=== PATIENT | female | born 1940 | race Caucasian/White ===

== ENCOUNTER → 2016-09-20 | Outpatient (CLI) | payer OTHER, BC ==
[2016-09-20 07:46] LABS: HEMATOCRIT 41.7 % (37.0-47.0); HEMOGLOBIN 13.6 g/dL (12.0-16.0); MEAN CORPUSCULAR HEMOGLOBIN 29.2 PG (27-31); MEAN CORPUSCULAR HGB CONC 32.6 g/dL (33-37); MEAN CORPUSCULAR VOLUME 89.7 FL (81-99); MEAN PLATELET VOLUME 11.1 FL (7.4-12.2); RED BLOOD COUNT 4.65 10^6/uL (4.20-5.40)
[2016-09-20 07:54] LABS: BUN/CREATININE RATIO 28.75 (6-20); CALCIUM 9.2 mg/dL (8.7-10.7); CHOL/HDL RATIO 2.76 RATIO (0-4.0); LDL CHOLESTEROL,CALCULATED 64.2 mg/dL; SERUM ALBUMIN 3.9 g/dL (3.5-4.8)
--- NOTE | 2016-09-20 08:53 | DI ---
PA /LATERAL CHEST X-RAY, 09/20/2016 7:32 AM : Clinical History: CHF. Edema. Previous Exam: 04/14/2013. There is no acute soft tissue or bony abnormality. Heart size is normal. Lungs are clear. Mediastinal structures are normal. There are no pulmonary nodules. Reading: Normal chest x-ray. There has been no interval change.
== END ==
LOC: LAB 07:26
PROVIDERS: ATTEND Obstetrics & Gynecology Gynecology
DX: I50.9 Heart failure, unspecified (principal); R60.9 Edema, unspecified; E03.9 Hypothyroidism, unspecified; E78.00 Pure hypercholesterolemia, unspecified; R53.81 Other malaise; E87.6 Hypokalemia
CPT/HCPCS: 36415; 71020; 80053; 80061; 83880; 84443; 85027

== ENCOUNTER 2017-09-11 18:36 | Observation (INO) ==
[2017-09-11] MEDS ORDERED: NORMAL SALINE 10 ML SYRINGE FLUSH IVP PRN ×2 (18:53→21:49)
[2017-09-11] MEDS ORDERED: Sodium Chloride 0.9% 1,000 ML PRIMARY IV ONE (18:53)
--- NOTE | 2017-09-11 18:53 | PDOC ---
General Adult HPI - General Chief Complaint: General Medical Stated Complaint: DIZZINESS Date Seen by Provider: 09/11/17 Time Seen by Provider: 18:45 Source: POSITIVE: Patient Exam Limitations: POSITIVE: No limitations Nurse's Notes Reviewed & Considered: Yes - History of Present Illness Initial Comment: The patient is a 77-year-old female who presents the emergency department with the primary complaint of dizziness. She states that off and on over the past several months she's had some episodes of dizziness especially with movement. She states that today she had onset of the symptoms and they are worse than they have been previously. She states that when she gets up and tries to move around she is very unsteady and dizzy. She denies any associated headache, change in vision, change in speech, numbness or weakness in her extremities, chest pain or shortness of breath. She has had some chronic congestion related to allergies. She denies any fevers or chills, nausea or vomiting or any other associated complaints. Have you received a tetanus shot in the past 10 years?: Yes - Patient Home Medications Home Medications: Home Medications Folic Acid 4 mg PO DAILY 08/27/13 Amlodipine Besylate/Benazepril [Amlodipine-Benazepril 5-10 mg] 1 ea PO DAILY Triamterene/Hydrochlorothiazid [Dyazide 37.5-25 Capsule] 1 ea PO DAILY 08/28/13 Rosuvastatin Calcium [Crestor] 1 tab PO DAILY #90 tab 10/18/14 Celecoxib [Celebrex] 1 cap PO DAILY #90 cap 11/23/14 Cholecalciferol (Vitamin D3) [Vitamin D] 1 cap PO QD cap 02/16/15 Vitamin B Complex 1 ea PO QD tab 02/16/15 Levothyroxine Sodium 1 tab PO QD #90 tab 03/16/15 - Patient Allergies Allergies/Adverse Reactions: Allergies 3 Allergy/AdvReac Type Severity Reaction Status Date / Time No Known Allergies Allergy Verified 09/11/17 19:09 Past Medical History - heen HEENT History: Denies History Cardiovascular History: Hypertension, DVTs, Hyperlipidemia Additional Cardiovasular History: current dvt Respiratory History: Snoring Gastrointestinal History: Other (please comment) Additional Gastrointestinal History: Hx of Appendectomy and Cholecystectomy Genitourinary History: Denies History Endocrine History: Hypothyroidism Musculoskeletal History: Arthritis Neurological History: Denies History Blood Disorders: Clotting Disorders Psychiatric History: Denies History History of Sexually Transmitted Diseases: No Cancer History: Breast History of MDRO: No History of Other Communicable Diseases: No Alcohol Use: None In the Past 12 Months, Have Used or Abuse Any Substance: None Previous Surgical History: Yes Type / Date of Surgery: see above Anesthesia Reactions: No Malignant Hyperthermia: No Significant Family History: Heart disease Additional Family History: father Past Medical History Reviewed: Reviewed - No Changes ROS - Limitations ROS Limitations: No Limitations Constitution: DENIES: Chills, Fever Cardiovascular: DENIES: Chest Pain, Heart Palpitations, Edema Respiratory: REPORTS: Denies Resp Symptoms. DENIES: Shortness Of Breath Neurological: REPORTS: Dizziness. DENIES: Confusion, Headache, Numbness, Weakness Gastrointestinal: REPORTS: Denies GI Symptoms Musculoskeletal: REPORTS: Denies MS Symptoms Eyes: REPORTS: Denies Symptoms ENT: REPORTS: Denies Symptoms Skin: DENIES: Rash General Adult Exam - General Appearance General Appearance: POSITIVE: Alert, Cooperative, No Acute Distress - HEENT HEENT: POSITIVE: Head Inspection Nml, Eyes Inspection Nml, Ears Inspection Nml, Nose Inspection Nml, Pharynx Inspect. Nml, PERRL, EOMI - Neck Neck: POSITIVE: Normal Inspection. NEGATIVE: Lymphadenopathy - Respiratory Respiratory: POSITIVE: No Respiratory Distress, Breath Sounds Normal - Cardiovascular Cardiovascular: POSITIVE: Regular Rate & Rhythm, No Murmur Peripheral Pulses: Dorsalis-pedis (R): 2+, Dorsalis-pedis (L): 2+ - Abdomen Abdomen: Soft: (All Quadrants), Denies Tenderness: (All Quadrants), No Distention: (All Quadrants) - Skin Skin: POSITIVE: Normal Color, No Rash - Extremities Extremity: Normal ROM: (All Extremities), Normal Inspection: (All Extremities) - Neurological / Psychological Neurological: POSITIVE: Oriented X3, Motor Normal, Sensation Normal General Adult Progress - Results Reviewed by me Xrays/CTs/US Reviewed by me: Yes Discussed with Radiologist: Yes Radiology Findings: CT scan of the brain shows atrophy with no evidence of acute changes per radiologist. Lab Results Reviewed by Me: Yes CBC and BMP: 09/11/17 19:46 09/11/17 19:46 EKG Interpreted/Reviewed By Me:: Yes EKG Interpretation:: POSITIVE: Other (Sinus tachycardia with PACs at a rate of 104, no acute ST segment or T-wave changes) - Patient's Progress MDM / ED Course: An IV was established and she received 1 L bolus of normal saline as well as meclizine 25 mg by mouth. Her initial EKG showed sinus tachycardia with a rate of 104 with a few PACs and no evidence of acute ST segment depression or elevation. Her head CT was read as no acute intracranial findings with evidence of cerebral and cerebellar atrophy per radiologist. Her blood work is essentially unremarkable except for an elevated BUN/creatinine ratio and a potassium that is slightly low at 3.4. After administration of 1 L of fluids and meclizine she stated that her unsteadiness and dizziness seemed somewhat improved. We checked orthostatic vital signs and her pulse went up from the 80s laying down into the 120s 130s with standing and then abruptly dropped into the 60s. Her blood pressure remained stable throughout that period. She did not have any increasing symptoms. Upon laying back down her pulse came back to the 80s and was a sinus rhythm with PACs again. At this point it seems most likely that her vertigo type symptoms are likely related to inner ear disturbance as she does have some allergies or chronic sinus issues. She also appears to have some component of dehydration. Decision was made to admit the patient for further hydration and cardiac monitoring. These findings and recommendations were discussed with the patient and her family and they're in agreement with this plan. Dr. Spears has agreed to admit the patient as above. - Consult Counseled: POSITIVE: Patient, Family, RE: Lab Results, RE: Radiology Results, RE : DX Patient Care Time - Estimated PCT Patient Care Time (In Minutes): 45 Vital Signs - Recent Vital Signs Vital Signs: Vital Signs (Last 8 hours) Temp Pulse Pulse Pulse Pulse Resp BP 09/11/17 20:50 85 111 H 123 H 09/11/17 19:25 96.9 F 99 18 135/82 BP BP BP Pulse Ox 09/11/17 20:50 102/58 116/70 111/61 09/11/17 19:25 92 - VS Reviewed Vital Signs Reviewed: Yes Discharge Clinical Impression: Dehydration, Dizziness, Hypokalemia Discharge Disposition: Admit to Observation Condition: Stable Follow Up With: ZULEIMA WEBER [Primary Care Provider] -
[2017-09-11] MEDS ORDERED: MECLIZINE 25 MG CHEWABLE TABLET PO ONE (19:24)
--- NOTE | 2017-09-11 19:42 | DI ---
CT HEAD SCAN WITHOUT IV CONTRAST, 09/11/2017 6:53 PM : Clinical History: Dizziness. Previous Exam: None at this facility. Scans are obtained from the foramen magnum to the vertex without IV contrast. The fourth ventricle is of normal size, shape, position and contour. The third and lateral ventricles are mildly dilated but are otherwise normal for this patient's age. There is no evidence of an acute hemorrhagic or bland infarct. There is no cerebellopontine angle mass. There are bilateral lucent ar eas in the anterior and posterior limbs of the internal capsule but these are symmetric and felt to b e within normal limits or represent ischemic change rather than bilateral symmetric old lacunar infar cts. There are multiple punctate periventricular white matter lucencies bilaterally that extend into the watershed territory, consistent with small vessel ischemic disease. This amount of ischemic disea se is appropriate for the patient's age. There is severe cerebral atrophy and moderate cerebellar atr ophy. There are no extracerebral mantles or shift of the midline structures. Bone window evaluation i s normal. The paranasal sinuses are normal. READIN. There is no acute hemorrhagic or bland infarct. No cerebellopontine angle mass or abnormality of the petrous pyramids is noted. 2. Small vessel ischemic disease appropriate for the patient's age. 3. Moderate cerebellar and severe cerebral atrophy.
--- NOTE | 2017-09-11 19:48 | EKG ---
[address] [address] Measurements Intervals [place] Rate: 105 P: 53 MD: 168 QRS: -6 QRSD: 84 T: 39 QT: 341 QTc: 402 Interpretive Statements SINUS TACHYCARDIA WITH OCCASIONAL SUPRAVENTRICULAR PREMATURE COMPLEXES ABNORMAL RHYTHM ECG Compared to ECG 08/25/2013 18:25:05 Sinus rhythm no longer present Electronically Signed On 09-12-17 09:41:37 MDT by Waldemar Hoffman MD [email or web address]
[2017-09-11 19:49] LABS: BASOPHILS # (AUTO) 0.04 10*3/UL; BASOPHILS % (AUTO) 0.4 % (0-1); EOSINOPHILS % (AUTO) 1.9 % (0-8); LYMPHOCYTES # (AUTO) 3.05 10*3/uL; MEAN CORPUSCULAR HEMOGLOBIN 29.1 PG (27-31); MEAN CORPUSCULAR HGB CONC 33.3 g/dL (33-37); MEAN CORPUSCULAR VOLUME 87.4 FL (81-99); MEAN PLATELET VOLUME 11.1 FL (7.4-12.2); MONOCYTES # (AUTO) 1.09 10*3/UL (0.3-0.8); MONOCYTES % (AUTO) 10.1 % (5-15); NEUTROPHILS # (AUTO) 6.41 10*3/UL; NEUTROPHILS % (AUTO) 59.2 % (50-80); RED BLOOD COUNT 5.15 10^6/uL (4.20-5.40)
[2017-09-11 19:51] LABS: PLATELET MORPHOLOGY COMMENT NORMAL MORPHOLOGY (NORM); RBC MORPHOLOGY COMMENT NORMAL MORPHOLOGY (NORM); WBC MORPHOLOGY COMMENT NORMAL MORPHOLOGY (NORM)
[2017-09-11 20:00] LABS: BLOOD UREA NITROGEN 27 mg/dL (7-22); BUN/CREATININE RATIO 33.75 (6-20); SERUM ALBUMIN 4.4 g/dL (3.5-4.8)
[2017-09-11] MEDS ORDERED: LEVOTHYROXINE SODIUM PO SCH (21:49)
[2017-09-11] MEDS ORDERED: Magnesium Sulfate 2gm (Premix) 2 GM/50 ML BAG IV ONE (21:49)
[2017-09-11] MEDS ORDERED: ONDANSETRON 4 MG/2 ML VIAL IVP PRN (21:49)
[2017-09-11] MEDS ORDERED: LIDOCAINE W/ SODIUM BICARB 0.5 ML SYR SUBD PRN (21:49)
[2017-09-11] MEDS: HEPARIN 5000 UNIT/1 ML SUBCUT SCH (22:32)
[2017-09-12 05:10] VITALS: RESP 20
[2017-09-12] MEDS: HEPARIN 5000 UNIT/1 ML SUBCUT SCH (05:11)
[2017-09-12 05:16] LABS: BASOPHILS # (AUTO) 0.03 10*3/UL; BASOPHILS % (AUTO) 0.3 % (0-1); EOSINOPHILS # (AUTO) 0.27 10*3/UL; EOSINOPHILS % (AUTO) 2.8 % (0-8); Hematocrit [HCT] 39.2 % (37.0-47.0); Hemoglobin [HGB] 12.8 g/dL (12.0-16.0); LYMPHOCYTES # (AUTO) 3.69 10*3/uL; MEAN CORPUSCULAR HGB CONC 32.7 g/dL (33-37); MEAN CORPUSCULAR VOLUME 88.7 FL (81-99); MEAN PLATELET VOLUME 11.3 FL (7.4-12.2); MONOCYTES # (AUTO) 1.06 10*3/UL (0.3-0.8); NEUTROPHILS # (AUTO) 4.58 10*3/UL; NEUTROPHILS % (AUTO) 47.4 % (50-80); RED BLOOD COUNT 4.42 10^6/uL (4.20-5.40)
[2017-09-12 05:20] LABS: PLATELET MORPHOLOGY COMMENT NORMAL MORPHOLOGY (NORM); RBC MORPHOLOGY COMMENT NORMAL MORPHOLOGY (NORM); WBC MORPHOLOGY COMMENT NORMAL MORPHOLOGY (NORM)
[2017-09-12 05:27] LABS: BLOOD UREA NITROGEN 21 mg/dL (7-22); SERUM ALBUMIN 3.5 g/dL (3.5-4.8)
[2017-09-12] MEDS ORDERED: LEVOTHYROXINE 75 MCG TABLET PO ONE (06:00)
[2017-09-12] MEDS ORDERED: LEVOTHYROXINE SODIUM PO SCH (06:00)
[2017-09-12] MEDS ORDERED: LEVOTHYROXINE SODIUM 75 MCG PO SCH (06:00)
[2017-09-12] MEDS ORDERED: LEVOTHYROXINE 75 MCG TABLET PO SCH (07:15)
[2017-09-12 08:16] VITALS: BP 108/50; TEMP 98; O2SAT 93
[2017-09-12] MEDS ORDERED: CHOLECALCIFEROL 1000 IU TABLET PO SCH (09:00)
[2017-09-12] MEDS ORDERED: CELECOXIB 200 MG CAPSULE PO SCH (09:00)
--- NOTE | 2017-09-12 11:38 | EKG ---
[address] [place] [address] Measurements Intervals [place] Rate: 76 P: 64 IA: 180 QRS: -6 QRSD: 86 T: 23 QT: 386 QTc: 416 Interpretive Statements SINUS RHYTHM LOW QRS VOLTAGE IN PRECORDIAL LEADS [QRS DEFLECTION < 1.0 mV IN CHEST LEADS] POSSIBLE ANTERIOR MYOCARDIAL INFARCTION [30 ms Q WAVE IN V3/V4, OR R < 0.2 mV IN V4], PROBABLY OLD Compared to ECG 09/11/2017 19:05:32 Low QRS voltage now present Myocardial infarct finding now present Sinus tachycardia no longer present Electronically Signed On 09-15-17 08:27:48 MDT by Waldemar Hoffman MD [email or web address]
--- NOTE | 2017-09-12 11:59 | PDOC ---
HPI - History of Present Illness History of Present Illness: This very nice 77-year-old female who comes to the ER complaining of dizziness she had this off and on over the past 2 or 3 months especially with movement. She was up in the ER because her symptoms were worse. Patient was admitted to the hospital her electrolytes were replaced including magnesium and potassium and hydrated over 3 L with a change in the BUN she is walking around freely no further dizziness she feels great she hasn't felt this good in many months. Also repeat EKG showing this normal sinus rhythm no PVCs no tachycardia patient will like to be discharged home. Most likely from dehydration and electrolyte deficiencies. Nursing observe the patient using the restroom and walking around with no dizziness or any other discomfort or symptoms Final Discharge Diagnosis: Diagnostic Data, Laboratory Data, and Procedures of Signifigance: Current Visit Problems Problem Status Onset Code Dehydration Acute E86.0 Dizziness Acute R42 Hypokalemia Acute E87.6 Course of Hospitalization: See above On the date of discharge, the patient was examined: Vitals reviewed and are listed below Vital Signs (24 hrs) Temp Pulse Pulse Pulse Pulse Pulse Resp 09/12/17 11:00 72 09/12/17 08:16 98 F 95 20 09/12/17 07:00 87 95 09/12/17 05:00 97.4 F 71 20 09/12/17 03:00 80 09/12/17 01:00 97.8 F 76 18 09/11/17 23:00 90 09/11/17 22:01 97.3 F 75 20 09/11/17 21:53 75 20 09/11/17 20:50 85 111 H 123 H 09/11/17 19:25 96.9 F 99 18 BP BP BP BP Pulse Ox 09/12/17 11:00 09/12/17 08:16 108/50 93 09/12/17 07:00 09/12/17 05:00 124/60 95 09/12/17 03:00 09/12/17 01:00 100/57 95 09/11/17 23:00 09/11/17 22:01 116/55 96 09/11/17 21:53 09/11/17 20:50 102/58 116/70 111/61 09/11/17 19:25 135/82 92 Assessment and Plan: 1. As per discharge assessments above 2. Disposition: Home 3. Condition on discharge, stable and improved. 4. Diet: regular diet 5. Activities: resume normal activities 6. Follow-Up: 1. PCP follow-up with primary care physician as indicated 2. 7. Medications at the Time of Discharge: Home Medications 3 Medication Instructions Recorded Confirmed Type Folic Acid 4 mg PO DAILY 08/27/13 09/11/17 History Amlodipine Besylate/Benazepril 1 ea PO DAILY 08/28/13 09/11/17 History [Amlodipine-Benazepril 5-10 mg] Triamterene/Hydrochlorothiazid 1 ea PO DAILY 08/28/13 09/11/17 History [Dyazide 37.5-25 Capsule] Rosuvastatin Calcium [Crestor] 1 tab PO DAILY #90 tab 10/18/14 09/11/17 History Celecoxib [Celebrex] 1 cap PO DAILY #90 cap 11/23/14 09/11/17 History Cholecalciferol (Vitamin D3) 1 cap PO QD cap 02/16/15 09/11/17 History [Vitamin D] Vitamin B Complex 1 ea PO QD tab 02/16/15 09/11/17 History Levothyroxine Sodium 1 tab PO QD #90 tab 03/16/15 09/11/17 History 8. Time, care, counseling and coordination of care for this discharge is greater than 30 minutes. Past Medical History Medical History: Hypertension, hypercholesterolemia, dizziness Tobacco Use: Never Smoker In the Past 12 Months, Have Used or Abuse Any of the Following Substance: None Medication / Allergies Home Medications: Home Medications 3 Medication Instructions Recorded Confirmed Type Folic Acid 4 mg PO DAILY 08/27/13 09/11/17 History Amlodipine Besylate/Benazepril 1 ea PO DAILY 08/28/13 09/11/17 History [Amlodipine-Benazepril 5-10 mg] Triamterene/Hydrochlorothiazid 1 ea PO DAILY 08/28/13 09/11/17 History [Dyazide 37.5-25 Capsule] Rosuvastatin Calcium [Crestor] 1 tab PO DAILY #90 tab 10/18/14 09/11/17 History Celecoxib [Celebrex] 1 cap PO DAILY #90 cap 11/23/14 09/11/17 History Cholecalciferol (Vitamin D3) 1 cap PO QD cap 02/16/15 09/11/17 History [Vitamin D] Vitamin B Complex 1 ea PO QD tab 02/16/15 09/11/17 History Levothyroxine Sodium 1 tab PO QD #90 tab 03/16/15 09/11/17 History Allergies/Adverse Reactions: Allergies 3 Allergy/AdvReac Type Severity Reaction Status Date / Time No Known Allergies Allergy Verified 09/11/17 19:09 Review of Systems - Review of Systems All Systems: Reviewed & No Additional Complaints Except as Stated - Ear/Nose Exam Ear/Nose Exam: DENIES: Negative System Review, Decreased Hearing, Tinnitus, Otalgia, Sinus Pain, Rhinorrhea, Congestion, Anosmia, Epistaxis, Other, See HPI - Respiratory Respiratory: DENIES: Negative System Review, Cough, Sputum, Dyspnea At Rest, Dyspnea with Exertion, Pleuritic Pain, Hemoptysis, Wheezing, Other, See HPI - Cardiovascular Cardiovascular: DENIES: Chest Pain, Edema, Syncope, Palpitations - Gastrointestinal Gastrointestinal / Abdominal: DENIES: Negative System Review, Nausea, Vomiting, Diarrhea, Constipation, Abdominal Pain, Bloody Stool, Poor Appetite, Heartburn, Regurgitation, Bloating, Lactose Intolerance, Melena, Bright Red Blood per Rectum, Other, See HPI - Genitourinary Genitourinary: DENIES: Negative System Review, Pain, Burning, Hematuria, Incontinence, Urgency, Hesitant Stream, Decreased Stream, Nocutria, Discharge, Sexual Dysfunction, Other, See HPI - Neurological Neurologic: REPORTS: Dizziness Exam - Vitals Vital Signs: Vital Signs Temperature 98 F Temperature Source Temporal Artery Scan Pulse Rate [Pulse Oximeter] 95 Pulse Rate 72 Respiratory Rate 20 Blood Pressure [Left Arm] 108/50 Pulse Ox 93 Oxygen Delivery Method Room Air Height 5 ft 4 in Weight 184 lb 14.4 oz - General General Appearance: No Acute Distress, Cooperative - Head Head Exam: Normal Inspection, Normocephalic, Atraumatic - Neck Neck Exam: Normal Inspection, Full ROM, No Tenderness, No Lymphadenopathy, No Thyromegaly, JVP is not Raised - Respiratory Respiratory Exam: POSITIVE: Clear to Auscultation - Bilaterally, Breathing Non Labored, Normal To Percussion, Normal to Percussion and Palpation - Cardiovascular Cardiovascular Exam: POSITIVE: RRR, No Murmur, No Clicks, No Gallops, No Rubs, PMI Non-Displaced - GI/Abdominal GI/Abdominal Exam: POSITIVE: Normal Bowel Sounds, Non Tender, Non Distended, Soft, No Masses, No Hepatomegaly, No Splenomegaly, No Organomegaly - Extremities Extremities Exam: POSITIVE: Normal Inspection, Full ROM, Normal Capillary Refill , No Clubbing Present, No Edema Present, No Cyanosis Present, Negative Rufus's sign, Dosalis Pedis Pulses - Stong & Regular Results - Labs CBC and BMP: 09/12/17 04:12 09/12/17 04:12 Assessment and Plan - Patient Problems (1) Hypomagnesemia Current Visit: Yes Status: Acute Code(s): E83.42 - Hypomagnesemia (2) Dehydration Current Visit: Yes Status: Acute Code(s): E86.0 - Dehydration (3) Dizziness Current Visit: Yes Status: Acute Code(s): R42 - Dizziness and giddiness (4) Hypokalemia Current Visit: Yes Status: Acute Code(s): E87.6 - Hypokalemia
[2017-09-12] MEDS ORDERED: Rosuvastatin Tab 20 MG TAB PO SCH (21:00)
[2017-09-13] MEDS ORDERED: LEVOTHYROXINE 75 MCG TABLET PO SCH (05:30)
== END 2017-09-12 13:04 | disposition home or self-care (01) ==
LOC: MED/SURG 18:36 → ER 18:36 → MED/SURG 21:35
PROVIDERS: ADMIT Internal Medicine; ATTEND Internal Medicine

== ENCOUNTER 2018-12-29 18:51 | Inpatient (IN) ==
[2018-12-29] MEDS ORDERED: ASPIRIN 81 MG (BABY) CHEWABLE TABLET PO ONE (19:04)
[2018-12-29] MEDS ORDERED: Sodium Chloride 0.9% 1,000 ML PRIMARY IV ONE (19:04)
[2018-12-29] MEDS ORDERED: MORPHINE SULFATE 4 MG/1 ML IVP ONE (19:04)
--- NOTE | 2018-12-29 19:07 | EKG ---
[address] [place] [address] Measurements Intervals [place] Rate: 111 P: 27 MT: 163 QRS: -11 QRSD: 85 T: 18 QT: 320 QTc: 386 Interpretive Statements SINUS TACHYCARDIA WITH OCCASIONAL ECTOPIC PREMATURE COMPLEXES MODERATE VOLTAGE CRITERIA FOR LVH, CONSIDER NORMAL VARIANT [MEETS CRITERIA IN ONE OF: R(aVL), S(V1), R(V5), R(V5/V6)+S(V1)] POSSIBLE ANTERIOR MYOCARDIAL INFARCTION [30 ms Q WAVE IN V3/V4, OR R < 0.2 mV IN V4], PROBABLY OLD ABNORMAL RHYTHM ECG Compared to ECG 09/12/2017 11:40:29 Sinus rhythm no longer present Myocardial infarct finding still present Electronically Signed On 12-30-18 13:01:29 MDT by Waldemar Hoffman MD [email or web address]
[2018-12-29 19:13] LABS: BASOPHILS # (AUTO) 0.03 10*3/UL; BASOPHILS % (AUTO) 0.2 % (0-1); EOSINOPHILS # (AUTO) 0.02 10*3/UL; EOSINOPHILS % (AUTO) 0.1 % (0-8); Hemoglobin [HGB] 13.2 g/dL (12.0-16.0); LYMPHOCYTES # (AUTO) 1.44 10*3/uL; MEAN CORPUSCULAR HGB CONC 32.2 g/dL (33-37); MEAN CORPUSCULAR VOLUME 90.5 FL (81-99); MEAN PLATELET VOLUME 11.1 FL (7.4-12.2); MONOCYTES # (AUTO) 2.33 10*3/UL (0.3-0.8); NEUTROPHILS % (AUTO) 79.9 % (50-80); PLATELET MORPHOLOGY COMMENT NORMAL MORPHOLOGY (NORM); RBC MORPHOLOGY COMMENT NORMAL MORPHOLOGY (NORM); RED BLOOD COUNT 4.53 10^6/uL (4.20-5.40); WBC MORPHOLOGY COMMENT NORMAL MORPHOLOGY (NORM)
[2018-12-29 19:16] LABS: BLOOD UREA NITROGEN 17 mg/dL (7-22); BUN/CREATININE RATIO 28.33 (6-20); SERUM ALBUMIN 3.7 g/dL (3.5-4.8)
--- NOTE | 2018-12-29 19:35 | DI ---
AP CHEST X-RAY, 12/29/2018 7:04 PM : Clinical History: Chest pain. Previous Exam: 09/19/2006. Soft Tissues: No acute soft tissue abnormality. Bones: Normal. Heart: Heart Size: Normal. Vascular Pedicle Width: Normal. Azygous Vein: Normal size. Vascular Flow P attern:Normal. Pulmonary Arteries: More prominent than on the previous film. Lungs: There is a pleural-based density in the right costophrenic angle and this is highly suspicious for pulmonary embolism with infarction. Patchy densities are present in the right midlung field. Effusion(s): Probable small right pleural effusion. Mediastinum: Normal. Nodules: No pulmonary nodules. Reading: Pleural-based density in the right lower lobe, highly suspicious for pulmonary embolism with infarcti on. A CT angiogram of the chest is recommended. Small right pleural effusion.
--- NOTE | 2018-12-29 20:48 | DI ---
CT CTA Chest Non-Coronary [facility],12/29/2018 7:46 PM: Clinical History: Chest pain and elevated d-dimer. Previous Exam: 08/26/13 Findings: Multiple helically acquired CT images are obtained through the chest following the intravenous minist ration of 62 cc of Ultravist 370, and demonstrate multiple pulmonary emboli within the pulmonary jael jo ann bilaterally causing truncation. There is some subsegmental atelectasis in the lung bases. The aortic arch is unremarkable. The thyroid is normal. Multiple coronary artery calcifications are seen. Skeletal structures are unre markable. The upper abdomen is unremarkable. Impression: Multiple bilateral pulmonary emboli.
[2018-12-29] MEDS ORDERED: ENOXAPARIN SODIUM 80 MG/0.8 ML SYRINGE SUBCUT ONE (21:45)
--- NOTE | 2018-12-29 23:08 | PDOC ---
HPI - History of Present Illness Date of Service: 12/29/18 Time of Service: 22:45 Chief Complaint: Chest pain of 2 days' duration History of Present Illness: This is an 78 years old female with medical history significant for history of previous breast cancer status post radical mastectomy, history of hypothyroidism, hypertension and history of previous DVT who presented to the hospital with history of shortness of breath of about 2 days duration pain felt in the right side of the chest worse with movement and taking deep breath. She rated the pain maybe 5 out of 10. Investigation in the ER showed elevated d- dimer a CT of the chest showed bilateral PE she was given Lovenox and was admitted. The patient is a very poor historian, the history mainly obtained from notes. She refused the answer questions to assess her memory With no clear explanation. Past Medical History Medical History: 1. Hypertension. 2. Hypercholesterolemia. 3. Hypothyroidism. 4. History of previous DVT was on warfarin before Surgical History: 1. History of right modified radical mastectomy for breast cancer. 2. History of cholecystectomy. 3. History of appendectomy Family History: Reviewed an Not Pertinent Past Social History: Does not smoke, or drink. Her son lives with her. She said her 2004. On drugs. Tobacco Use: Never Smoker In the Past 12 Months, Have Used or Abuse Any of the Following Substance: None Medication / Allergies Home Medications: Home Medications Medication Instructions Recorded Confirmed Folic Acid 4 mg PO DAILY 08/27/13 12/29/18 Amlodipine Besylate/Benazepril 1 ea PO DAILY 08/28/13 12/29/18 [Amlodipine-Benazepril 5-10 mg] Rosuvastatin Calcium [Crestor] 1 tab PO DAILY #90 tab 10/18/14 12/29/18 Celecoxib [Celebrex] 1 cap PO DAILY #90 cap 11/23/14 12/29/18 Cholecalciferol (Vitamin D3) 1 cap PO QD cap 02/16/15 12/29/18 [Vitamin D] Vitamin B Complex 1 ea PO QD tab 02/16/15 12/29/18 Levothyroxine Sodium 1 tab PO QD #90 tab 03/16/15 12/29/18 Allergies/Adverse Reactions: Allergies Allergy/AdvReac Type Severity Reaction Status Date / Time No Known Allergies Allergy Verified 12/29/18 20:43 Review of Systems - Review of Systems All Systems: Reviewed & No Additional Complaints Except as Stated Exam - Vitals Vital Signs: Vital Signs Oxygen Flow Rate 2 Oxygen Delivery Method Nasal Cannula Height 5 ft 4 in Weight 171 lb 12.8 oz - General Additional General Exam Details: At times appear in pain though last few seconds. Seems related to position. - Head Head Exam: Normal Inspection - Eye Eye Exam: POSITIVE: Normal Appearance - ENT ENT Exam: POSITIVE: Normal Exam - Neck Neck Exam: Normal Inspection - Respiratory Additional Respiratory Exam Details: Decreased air entry crackles at the right base - Cardiovascular Cardiovascular Exam: POSITIVE: RRR - GI/Abdominal GI/Abdominal Exam: POSITIVE: Normal Bowel Sounds, Non Tender, Non Distended, Soft - Rectal Rectal Exam: POSITIVE: Deferred - External Exam: POSITIVE: Deferred - Extremities Extremities Exam: POSITIVE: Normal Inspection - Back Back Exam: POSITIVE: Normal Inspection - Neurological Additional Neurological Exam Details: Awake, follow commands. Refuses to answer questions to test her memory. - Psychiatric Psychiatric Exam: POSITIVE: Flat Affect - Integumentary Integumentary Exam: POSITIVE: Normal Color Results - Labs CBC and BMP: 12/30/18 05:05 12/29/18 19:00 - EKG Data -: EKG Interpreted by Me Rate: Tachycardia EKG Shows Normal: Sinus Rhythm - EKG Data EKG Interpretation: Other (EKG showed sinus tachycardia with occasional premature complex.) - Imaging Status: Report Reviewed by Me (CT chest Multiple bilateral pulmonary emboli. Chest X ray Pleural-based density in the right lower lobe, highly suspicious for pulmonary embolism with infarction. A CT angiogram of the chest is recommended. Small right pleural effusion.) Assessment and Plan - Patient Problems (1) Pulmonary embolism Current Visit: Yes Status: Acute Comment: She did say she was on warfarin before for DVT. She was very vague about who discontinued it and what medication she supposed to take. For the time being will put her on Lovenox. Will speak to her shoe planner tomorrow to see what medication she can afford and what medication her insurance would cover. sHe said she will not take the warfarin again. I think we will see what the insurance coverage and then will go from there. Will order an echocardiogram and ultrasound of her legs. Code(s): I26.99 - Other pulmonary embolism without acute cor pulmonale (2) Hypertension Current Visit: Yes Status: Acute Comment: There is history of hypertension reported in the notes and she has a probable amlodipine listed as one of her medication but she can not answer the question whether she has hypertension or not and whether she takes the medication or not she said she is not taking medication now but she couldn't tell me for what reason she suppose to take a medication for. Code(s): I10 - Essential (primary) hypertension (3) Leukocytosis Current Visit: Yes Status: Acute Comment: Maybe secondary some pulmonary infarction. I think will give her a dose of Rocephin. I'm not sure what her level of activity at home she claims that she is active. Although she did say that she fell, that was accidental according to her maybe 2 weeks ago. Code(s): D72.829 - Elevated white blood cell count, unspecified
[2018-12-29] MEDS ORDERED: CALCIUM CARBONATE 500 MG (TUMS) CHEWABLE TABLET PO PRN (23:17)
[2018-12-29] MEDS ORDERED: ACETAMINOPHEN 325 MG TABLET PO PRN (23:17)
[2018-12-29] MEDS ORDERED: ONDANSETRON 4 MG/2 ML VIAL IVP PRN (23:17)
[2018-12-29] MEDS ORDERED: DOCUSATE 100 MG CAPSULE PO PRN (23:17)
[2018-12-29] MEDS ORDERED: LIDOCAINE W/ SODIUM BICARB 0.5 ML SYR SUBD PRN (23:17)
[2018-12-29] MEDS ORDERED: MORPHINE SULFATE 2 MG/1 ML IVP PRN (23:37)
[2018-12-30] MEDS: cefTRIAXone Inj 2 GM in Sodium Chloride 0.9% 100 ML IV SCH ×2 (00:28→22:45)
--- NOTE | 2018-12-30 03:12 | PDOC ---
Chest Pain HPI - General Chief Complaint: Chest Pain Stated Complaint: CHEST PAIN Date Seen by Provider: 12/29/18 Time Seen by Provider: 18:55 Source: Patient, EMS Exam Limitations: POSITIVE: No limitations Treatment Prior to Arrival: REPORTS: Aspirin Nurse's Notes Reviewed & Considered: Yes EMS Report Reviewed & Considered: Verbal - History of Present Illness Initial Comments: The patient is an 78-year-old female who is brought to the emergency room by ambulance. She complains of bilateral chest pain, mainly below both of her breasts. She's had this pain for about 24 hours. She or family members called the ambulance, who administered 324 mg of baby aspirin in route. She states she is somewhat short of breath. No nausea vomiting or other GI or symptoms. No abdominal pain. No neurologic symptoms. She states that a few years ago she was treated with anticoagulation for a deep pain thrombosis to her lower extremities. Body Location Affected: REPORTS: Chest Timing: REPORTS: Abrupt, Constant Duration: <24 hours (Approximately 24 hours) Severity: Moderate Persistent/Worse since (date): 12/28/18 Persistent/Worse since (time): 19:00 Context: REPORTS: Rest Quality: REPORTS: "Pain" Radiation: REPORTS: None Associated Symptoms: REPORTS: Shortness of Breath. DENIES: Nausea, Vomiting, Diaphoresis, Hurts to Breathe, Palpitations, Productive Cough (blood), Productive Cough (sputum), Weakness, Dizziness Modifying Factors: improves with: None Reported Similar Symptoms Previously: No Recently seen/treated/hospitalized: No Any Prior Injuries Related to Current Complaint?: No - Patient Home Medications Home Medications: Home Medications Folic Acid 4 mg PO DAILY 08/27/13 Amlodipine Besylate/Benazepril [Amlodipine-Benazepril 5-10 mg] 1 ea PO DAILY 08/28/13 Rosuvastatin Calcium [Crestor] 1 tab PO DAILY #90 tab 10/18/14 Celecoxib [Celebrex] 1 cap PO DAILY #90 cap 11/23/14 Cholecalciferol (Vitamin D3) [Vitamin D] 1 cap PO QD cap 02/16/15 Vitamin B Complex 1 ea PO QD tab 02/16/15 Levothyroxine Sodium 1 tab PO QD #90 tab 03/16/15 - Patient Allergies Allergies/Adverse Reactions: Allergies Allergy/AdvReac Type Severity Reaction Status Date / Time No Known Allergies Allergy Verified 12/29/18 20:43 Past Medical History - heen HEENT History: Denies History Cardiovascular History: Hypertension, DVTs, Hyperlipidemia Additional Cardiovasular History: current dvt Respiratory History: Snoring Gastrointestinal History: Other (please comment) Additional Gastrointestinal History: Hx of Appendectomy and Cholecystectomy Genitourinary History: Denies History Endocrine History: Hypothyroidism Musculoskeletal History: Arthritis Prosthesis or Implant: No Neurological History: Denies History Blood Disorders: Clotting Disorders Psychiatric History: Denies History History of Sexually Transmitted Diseases: No Female Reproductive History: Breast Surgery (include type of surgery in additional comments), Other (please comment) Additional Female Reproductive History: RIGHT MASTECTOMY Obstetrical History: Denies History Cancer History: Breast In Past Year Been Physically Harmed or Verbally Threatened: No History of MDRO: No History of Other Communicable Diseases: No Tobacco Use: Never Smoker Alcohol Use: None In the Past 12 Months, Have Used or Abuse Any Substance: None Previous Surgical History: Yes Type / Date of Surgery: see above Anesthesia Reactions: No Malignant Hyperthermia: No Significant Family History: Heart disease Additional Family History: father Past Medical History Reviewed: Reviewed - No Changes ROS - Limitations ROS Limitations: No Limitations Constitution: REPORTS: Denies Symptoms Cardiovascular: REPORTS: Chest Pain Respiratory: REPORTS: Shortness Of Breath Neurological: REPORTS: Denies Neuro Symptoms Gastrointestinal: REPORTS: Denies GI Symptoms Endocrine: REPORTS: Denies Symptoms Musculoskeletal: REPORTS: Denies MS Symptoms Genitourinary: REPORTS: Denies Symptoms Eyes: REPORTS: Denies Symptoms ENT: REPORTS: Denies Symptoms Skin: REPORTS: Denies Skin Symptoms Lympathic: REPORTS: Denies Lympathic Symptoms Immunologic: POSITIVE: Denies Symptoms Psychiatric: POSITIVE: Denies Psych Symptoms Chest Pain PE - General Appearance General Appearance: REPORTS: Alert, Cooperative, No Acute Distress, No Evidence of Trauma - HEENT HEENT: POSITIVE: Head Inspection Nml, Eyes Inspection Nml, Ears Inspection Nml, Nose Inspection Nml, Oral/Dental Inspect. Nml, Pharynx Inspect. Nml, PERRL, EOMI - Neck Neck: REPORTS: Normal Inspection, No Carotid Bruit - Respiratory Respiratory: REPORTS: No Respiratory Distress, Breath Sounds Normal, Chest Non- Tender - Cardiovascular Cardiovascular: REPORTS: Regular Rate and Rhythm, Heart Sounds Normal, Equal Pulses, Strong Pulses, No Murmur, No Gallop, No Friction Rub, No JVD Peripheral Pulses: Radial (R): 2+, Radial (L): 2+ - Abdomen Abdomen: Soft: (All Quadrants), Normal Bowel Sounds: (All Quadrants), Denies Tenderness: (All Quadrants), No Splenomegaly: (All Quadrants), No Hepatomegaly: (All Quadrants), No Guarding: (All Quadrants), No Rebound: (All Quadrants), No Palpable Pulse: (All Quadrants), No Palpabale Mass: (All Quadrants), No Distention: (All Quadrants), No Rigidity: (All Quadrants) - Skin Skin: REPORTS: Intact, Normal For Race, Warm, Dry, No Rash - Extremities Extremity: Non-Tender: (All Extremities), Normal ROM: (All Extremities), Normal Inspection: (All Extremities) - Neurological / Psychological Neurological: POSITIVE: Affect Apporpriate, Oriented X3, cardiology physician assistant Normal As Tested, Motor Normal, Sensation Normal Images - Complete Complete: 1 - Area described chest pain Chest Pain Progress - Results Reviewed by me Xrays/CTs/US Reviewed by me: Yes Discussed with Radiologist: Yes Radiology Findings: Chest x-ray shows a pleural basilar density right lower quadrant compatible with pulmonary embolism or infarction. CTA of chest shows "central, segmental and some segmental pulmonary emboli bilaterally, right grea ter than left. Probable pulmonary infarct right middle and right lower lobe". Lab Results Reviewed by Me: Yes (d-dimer elevated; leukocytosis) CBC and BMP: 12/29/18 19:00 12/29/18 19:00 Lab Results:: Laboratory Results 12/29/18 12/29/18 12/29/18 19:00 19:00 19:00 WBC 19.39 H RBC 4.53 Hgb 13.2 Hct 41.0 MCV 90.5 MCH 29.1 MCHC 32.2 L RDW Std Deviation 49.2 RDW Coeff of Hasmukh 15.1 H Plt Count 187 MPV 11.1 Immature Gran % (Auto) 0.4 Neut % (Auto) 79.9 Lymph % (Auto) 7.4 L Pratt % (Auto) 12.0 Eos % (Auto) 0.1 Baso % (Auto) 0.2 Immature Gran # (Auto) 0.07 Neut # (Auto) 15.50 Lymph # (Auto) 1.44 Pratt # (Auto) 2.33 H Eos # (Auto) 0.02 Baso # (Auto) 0.03 WBC Morphology Comment Normal morphology Plt Morphology Comment Normal morphology RBC Morph Comment Normal morphology PT 15.1 H INR 1.31 D-Dimer 4377 H Sodium 138 Potassium 3.4 L Chloride 103 Carbon Dioxide 25 Anion Gap 10 BUN 17 Creatinine 0.6 BUN/Creatinine Ratio 28.33 H Glucose 139 H Calculated Osmolality 289.0 Calcium 8.6 L Total Bilirubin 1.0 AST 24 ALT 13 Alkaline Phosphatase 75 CK-MB (CK-2) Troponin I NT-Pro-B Natriuret Pep 352 Total Protein 7.4 Albumin 3.7 Globulin 3.8 Albumin/Globulin Ratio 0.90 L 12/29/18 12/29/18 19:00 19:00 WBC RBC Hgb Hct MCV MCH MCHC RDW Std Deviation RDW Coeff of Hasmukh Plt Count MPV Immature Gran % (Auto) Neut % (Auto) Lymph % (Auto) Pratt % (Auto) Eos % (Auto) Baso % (Auto) Immature Gran # (Auto) Neut # (Auto) Lymph # (Auto) Pratt # (Auto) Eos # (Auto) Baso # (Auto) WBC Morphology Comment Plt Morphology Comment RBC Morph Comment PT INR D-Dimer Sodium Potassium Chloride Carbon Dioxide Anion Gap BUN Creatinine BUN/Creatinine Ratio Glucose Calculated Osmolality Calcium Total Bilirubin AST ALT Alkaline Phosphatase CK-MB (CK-2) < 0.22 Troponin I < 0.012 NT-Pro-B Natriuret Pep Total Protein Albumin Globulin Albumin/Globulin Ratio EKG Interpreted/Reviewed By Me:: Yes (poor R-wave progression, unchanged from 09/13/2015) EKG Interpretation:: POSITIVE: Normal Sinus Rhythm, Normal Rate, Normal Intervals, Normal ST/T. NEGATIVE: Normal [place], Normal QRS (Poor R-wave prog ression in anterior leads) - Patient's Progress Pain Medication Addressed: POSITIVE: Patient Refused School/Work Release Addressed: POSITIVE: Not Applicable Re-Examine Time: 22:20 Re-Examine Comment: Patient and family advised of diagnosis of acute pulmonary embolism. Patient given Lovenox, 1 mg/kg subcutaneously in the emergency room. Case discussed with Dr. Dean, hospitalist, and patient is admitted for further evaluation and treatment. Status: POSITIVE: Unchanged, Re-Examined - Consult Consult (If Yes, Name of Consulting MD & Time Called): Yes (Dr. Dean, hospitalist, [id number]) Consulting MD will see pt:: POSITIVE: [facility] [place] Admit Counseled: POSITIVE: Patient, Family, RE: Lab Results, RE: Radiology Results, RE: DX, RE: Need for F/U Patient Care Time - Estimated PCT Patient Care Time (In Minutes): 50 Vital Signs - VS Reviewed Vital Signs Reviewed: Yes Discharge Clinical Impression: Pulmonary embolism Discharge Disposition: Admit to Inpatient Condition: Fair Patient Problem(s) Reviewed: Yes Date Decision to Admit to Inpatient: 12/29/18 Time Decision to Admit to Inpatient: 22:00
[2018-12-30] MEDS: HYDROcodone-APAP 5 MG -325 MG TABLET PO PRN ×3 (05:15→20:18)
[2018-12-30 05:23] LABS: BASOPHILS # (AUTO) 0.03 10*3/UL; BASOPHILS % (AUTO) 0.2 % (0-1); EOSINOPHILS # (AUTO) 0.06 10*3/UL; EOSINOPHILS % (AUTO) 0.4 % (0-8); Hematocrit [HCT] 37.8 % (37.0-47.0); Hemoglobin [HGB] 12.2 g/dL (12.0-16.0); LYMPHOCYTES # (AUTO) 1.91 10*3/uL; MEAN CORPUSCULAR HGB CONC 32.3 g/dL (33-37); MEAN CORPUSCULAR VOLUME 91.7 FL (81-99); MEAN PLATELET VOLUME 11.3 FL (7.4-12.2); MONOCYTES # (AUTO) 1.92 10*3/UL (0.3-0.8); NEUTROPHILS # (AUTO) 11.98 10*3/UL; NEUTROPHILS % (AUTO) 75.1 % (50-80); RED BLOOD COUNT 4.12 10^6/uL (4.20-5.40)
[2018-12-30 05:27] LABS: PLATELET MORPHOLOGY COMMENT NORMAL MORPHOLOGY (NORM); RBC MORPHOLOGY COMMENT NORMAL MORPHOLOGY (NORM); WBC MORPHOLOGY COMMENT NORMAL MORPHOLOGY (NORM)
[2018-12-30 06:30] LABS: HEMOGLOBIN A1C 5.45 % (4.2-6.0)
--- NOTE | 2018-12-30 09:49 | PDOC(PROG) ---
Date of Service: 12/30/18 Time of Service: 09:45 Interval History: Subjective Still continue to complain from pain in the chest pointing to the right side worse with the taking deep breath. Objective : Data - Labs CBC and BMP: 12/30/18 05:05 12/29/18 19:00 Objective : Exam - General General Appearance: No Acute Distress, Cooperative - Head Head Exam: Normal Inspection - Eye Eye Exam: Normal Appearance - ENT ENT Exam: Normal Exam - Neck Neck Exam: Normal Inspection - Respiratory Additional Respiratory Exam Details: Decreased air entry otherwise clear - Cardiovascular Cardiovascular Exam: RRR - GI/Abdominal GI/Abdominal Exam: Normal Bowel Sounds, Non Tender, Non Distended, Soft, No Organomegaly - Rectal Rectal Exam: Deferred - External Exam: Deferred - Extremities Extremities Exam: Normal Inspection - Back Back Exam: Normal Inspection - Neurological Additional Neurological Exam Details: She is awake refused to answer questions about day and month and year - Psychiatric Psychiatric Exam: Flat Affect Assessment and Plan - Patient Problems (1) Pulmonary embolism Current Visit: Yes Status: Acute Comment: Continue Lovenox. I did speak with the city planner about what medication her insurance would cover to see when we can switch her to medication by mouth Code(s): I26.99 - Other pulmonary embolism without acute cor pulmonale (2) Hypertension Current Visit: Yes Status: Acute Comment: Although there is a history of hypertension but I think she's not taking her medication. We'll watch her blood pressure. Code(s): I10 - Essential (primary) hypertension (3) Leukocytosis Current Visit: Yes Status: Acute Comment: Probably secondary to the pulmonary infarction. I think will continue IV antibiotics for now. Code(s): D72.829 - Elevated white blood cell count, unspecified
[2018-12-30] MEDS: ENOXAPARIN SODIUM 80 MG/0.8 ML SYRINGE SUBCUT SCH ×2 (09:53→22:45)
[2018-12-30] MEDS: Potassium Chloride Tab 10 MEQ TAB PO SCH ×2 (09:54→20:18)
--- NOTE | 2018-12-30 15:00 | DI ---
US Veins, UE/ABRAM Bilat,12/30/2018 7:00 AM: Clinical History: Pulmonary embolism. Previous Exam: August 25, 2013 Findings: Multiple grayscale and color Doppler sonographic images are obtained through the deep veins of both l ower trauma these, and demonstrate incomplete coaptation upon graded compression within the right com mon femoral vein and superficial femoral vein. There is some preserved flow. There is a 3.5 x 2.1 x 3.3 cm Altamirano's cyst within the right popliteal fossa. Within the left lower extremity there is an echogenic thrombus within the left common femoral vein an d superficial femoral vein and popliteal vein with incomplete coaptation. There is a 5.2 x 1.1 x 3.4 cm left Altamirano's cyst. Impression: Partially occlusive right lower extremity deep vein thrombosis most likely representing a chronic thr ombosis. Extensive deep venous thrombosis within the left lower extremity involving the common femoral vein th rough popliteal vein.
[2018-12-30] MEDS ORDERED: Warfarin 5 MG TAB PO SCH (21:00)
[2018-12-31] MEDS: HYDROcodone-APAP 5 MG -325 MG TABLET PO PRN ×2 (01:40→05:04)
[2018-12-31 05:21] LABS: Hematocrit [HCT] 36.9 % (37.0-47.0); Hemoglobin [HGB] 11.9 g/dL (12.0-16.0); MEAN CORPUSCULAR HGB CONC 32.2 g/dL (33-37); MEAN CORPUSCULAR VOLUME 91.8 FL (81-99); MEAN PLATELET VOLUME 11.4 FL (7.4-12.2); RED BLOOD COUNT 4.02 10^6/uL (4.20-5.40)
[2018-12-31 05:38] LABS: BLOOD UREA NITROGEN 12 mg/dL (7-22)
[2018-12-31 05:59] LABS: BAND NEUTROPHILS % 5 % (0-10); NEUTROPHILS % (MANUAL) 72 % (50-80)
[2018-12-31 06:00] LABS: BASOPHILS % (MANUAL) 0 % (0-1); EOSINOPHILS % (MANUAL) 2 % (0-8); METAMYELOCYTES % 0 %; MONOCYTES % (MANUAL) 3 % (0-12); MYELOCYTES % 0 %; PLATELET MORPHOLOGY COMMENT NORMAL MORPHOLOGY (NORM); PROMYELOCYTES % 0 %; RBC MORPHOLOGY COMMENT NORMAL MORPHOLOGY (NORM); WBC MORPHOLOGY COMMENT NORMAL MORPHOLOGY (NORM)
[2018-12-31] MEDS: Potassium Chloride Tab 10 MEQ TAB PO SCH ×2 (09:13→20:49)
[2018-12-31] MEDS: ENOXAPARIN SODIUM 80 MG/0.8 ML SYRINGE SUBCUT SCH (09:14)
--- NOTE | 2018-12-31 11:51 | OT.PROG ---
Progress Note Progress Note: S: pt stated that she was willing to complete assessment. O: tx consisted of MOCA evaluation. scoring as follows. Visuospatial/Executive: 1/5 Namin/3 Attention: 2/6 Language: 1/3 Abstraction: 1/2 Delayed recall: 0/5 Orientation: 6 total score: 8/30 A: pt scored in the severe cognitive impairment category. P: consult with hospitalist and family.
--- NOTE | 2018-12-31 12:53 | PDOC(PROG) ---
Date of Service: 12/31/18 Time of Service: 11:00 Interval History: Subjective Continued to have some pain in the chest she's pointing to the right side of the chest. Seem to be worse with cough and movement. Objective : Data - Labs CBC and BMP: 12/31/18 04:50 12/31/18 04:50 Objective : Exam - General General Appearance: No Acute Distress, Cooperative - Head Head Exam: Normal Inspection - Eye Eye Exam: Normal Appearance - ENT ENT Exam: Normal Exam - Neck Neck Exam: Normal Inspection - Respiratory Additional Respiratory Exam Details: Few crackles at the right lung base - Cardiovascular Cardiovascular Exam: RRR - GI/Abdominal GI/Abdominal Exam: Normal Bowel Sounds, Non Tender, Non Distended, Soft - Rectal Rectal Exam: Deferred - External Exam: Deferred - Extremities Extremities Exam: Normal Inspection - Back Back Exam: Normal Inspection - Psychiatric Psychiatric Exam: Flat Affect - Integumentary Integumentary Exam: Normal Color Assessment and Plan - Patient Problems (1) Pulmonary embolism Current Visit: Yes Status: Acute Comment: Yesterday I met with the sons and explained the condition to them, yesterday after discussion with Yue the production planner scheduler it appeared that her insurance would approve only warfarin so we kept her on the warfarin and Lovenox. Today I was informed by the production planner scheduler that Her insurance will cover for eliquis so I think we'll switch her tonight to the eliquis will DC war farin and Lovenox. I did order an echocardiogram as a collection technician will be here tomorrow. Code(s): I26.99 - Other pulmonary embolism without acute cor pulmonale (2) Hypertension Current Visit: Yes Status: Acute Comment: There is history of hypertension but blood pressure seems to be acceptable. Her son did bring her medications the only medication that she is is 75 MCG levothyroxin and I am not sure whether she is been it. Her TSH is normal. I think will put her on a lower dosage and need follow-up after that. Code(s): I10 - Essential (primary) hypertension (3) Leukocytosis Current Visit: Yes Status: Acute Comment: Maybe secondary to pulmonary infarction I did elect to treat her with antibiotics. I think will repeat her x-ray if the blood culture remain negative may consider stopping it. Will repeat her white count tomorrow. Code(s): D72.829 - Elevated white blood cell count, unspecified (4) DVT (deep venous thrombosis) Current Visit: Yes Status: Acute Comment: She is on treatment for it. Code(s): I82.409 - Acute embolism and thrombosis of unspecified deep veins of unspecified lower extremity (5) Cognitive impairment Current Visit: Yes Status: Acute Comment: One of the son mentioned to me that he did notice forgetfulness, the other son said he did not notice significant forgetfulness and he thinks that she different from before acutely. So we'll order a CT of her head. Will order B12. From my point I told him I suspect that she has an underlying dementia. Code(s): R41.89 - Other symptoms and signs involving cognitive functions and awareness
--- NOTE | 2018-12-31 16:33 | DI ---
CT Head WO Contrast,12/31/2018 9:24 AM: Clinical History: Confusion Previous Exam: 09/11/17 Findings: Multiple helically acquired CT images are obtained through the brain without contrast, and demonstrat e diffuse age-related volume loss. There is no mass, hemorrhage nor midline shift. The surrounding so ft tissue and osseous structures are unremarkable. Intraorbital structures and paranasal sinuses are unremarkable. The parapharyngeal fat is normal. Impression: No acute intracranial pathology.
[2018-12-31] MEDS: Apixaban 5 MG TABLET PO SCH (20:49)
[2018-12-31] MEDS: cefTRIAXone Inj 2 GM in Sodium Chloride 0.9% 100 ML IV SCH (23:05)
[2019-01-01] MEDS: LEVOTHYROXINE 25 MCG TABLET PO SCH (04:33)
[2019-01-01 05:10] LABS: BASOPHILS # (AUTO) 0.02 10*3/UL; BASOPHILS % (AUTO) 0.1 % (0-1); EOSINOPHILS # (AUTO) 0.07 10*3/UL; EOSINOPHILS % (AUTO) 0.5 % (0-8); Hemoglobin [HGB] 11.5 g/dL (12.0-16.0); LYMPHOCYTES # (AUTO) 1.51 10*3/uL; MEAN CORPUSCULAR HGB CONC 32.9 g/dL (33-37); MEAN CORPUSCULAR VOLUME 90.7 FL (81-99); MEAN PLATELET VOLUME 11.4 FL (7.4-12.2); MONOCYTES # (AUTO) 1.46 10*3/UL (0.3-0.8); MONOCYTES % (AUTO) 10.7 % (5-15); NEUTROPHILS # (AUTO) 10.53 10*3/UL; NEUTROPHILS % (AUTO) 77.3 % (50-80); RED BLOOD COUNT 3.86 10^6/uL (4.20-5.40)
[2019-01-01 05:24] LABS: BLOOD UREA NITROGEN 11 mg/dL (7-22); PLATELET MORPHOLOGY COMMENT NORMAL MORPHOLOGY (NORM); RBC MORPHOLOGY COMMENT NORMAL MORPHOLOGY (NORM); WBC MORPHOLOGY COMMENT NORMAL MORPHOLOGY (NORM)
[2019-01-01] MEDS: Potassium Chloride Tab 10 MEQ TAB PO SCH ×2 (08:46→20:37)
[2019-01-01] MEDS: Apixaban 5 MG TABLET PO SCH ×2 (08:46→20:38)
--- NOTE | 2019-01-01 10:50 | DI ---
PA /LATERAL CHEST, 01/01/2019 7:00 AM : Clinical History: Shortness of breath. Pulmonary embolism with infarction. Previous Exam: 12/29/2018. Soft Tissues: No acute soft tissue abnormality. Bones: Normal. Heart: Heart Size: Normal. Vascular Pedicle Width: Normal. Azygous Vein: Normal size. Vascular Flow P attern:Normal. Pulmonary Arteries: Pulmonary arterial hypertension present. Lungs: The right lower lobe infiltrate noted on the prior chest x-ray as well as on the recent CT ang iogram of the chest from 12/29/2018 has become more consolidated and resembles more of a "Lund hump ". No new areas of involvement are noted. Effusion(s): Right pleural effusion has increased slightly. Mediastinum: Normal. Nodules: No pulmonary nodules. Readin. Progressive consolidation of the right lower lobe pulmonary infarct. No new infarct pattern is no laila. 2. Slight increase in the right pleural effusion.
[2019-01-01] MEDS ORDERED: POTASSIUM CHLORIDE 20 MEQ TAB PO ONE (13:36)
--- NOTE | 2019-01-01 20:56 | PDOC(PROG) ---
Date of Service: 01/01/19 Time of Service: 20:51 Interval History: patient seen and evaluated earlier. discussed with son and grandson. less pain, cough present not as short of breath. no nausea or vomiting. Objective : Data - Labs CBC and BMP: 01/01/19 04:21 01/01/19 04:21 Objective : Exam - General General Appearance: No Acute Distress, Cooperative Additional General Exam Details: Vital Signs - Last Taken Temperature 98.7 F 01/01/19 16:41 Pulse Rate 97 01/01/19 16:41 Respiratory Rate 24 01/01/19 16:41 Blood Pressure 132/72 01/01/19 16:41 Pulse Ox 94 01/01/19 16:41 - Eye Eye Exam: No Scleral Icterus - ENT ENT Exam: Mucous Membranes Moist - Neck Neck Exam: JVP is not Raised - Respiratory Respiratory Exam: Breathing Non Labored, Decreased Breath Sounds (right side) - Cardiovascular Cardiovascular Exam: RRR, No Murmur, No Clicks, No Gallops, No Rubs, No JVD - GI/Abdominal GI/Abdominal Exam: Normal Bowel Sounds, Non Tender, Non Distended, Soft - Extremities Extremities Exam: No Clubbing Present, No Edema Present, No Cyanosis Present - Neurological Neurological Exam: Alert, Oriented x 3 (back to mental baseline per family.), No Facial Droop, Speech Intact / Clear, Moves All Extremities Equally Assessment and Plan - Patient Problems (1) Pneumonia Current Visit: Yes Status: Acute Code(s): J18.9 - Pneumonia, unspecified organism Qualifiers: Pneumonia type: due to unspecified organism Laterality: right Lung location: lower lobe of lung Qualified Code(s): J18.1 - Lobar pneumonia, unspecified organism (2) Pulmonary embolism Current Visit: Yes Status: Acute Code(s): I26.99 - Other pulmonary embolism without acute cor pulmonale Qualifiers: Pulmonary embolism type: other Chronicity: acute Acute cor pulmonale presence: without acute cor pulmonale Qualified Code(s): I26.99 - Other pulmonary embolism without acute cor pulmonale (3) Hypertension Current Visit: Yes Status: Acute Code(s): I10 - Essential (primary) hypertension Qualifiers: Hypertension type: essential hypertension Qualified Code(s): I10 - Essential (primary) hypertension (4) Leukocytosis Current Visit: Yes Status: Acute Code(s): D72.829 - Elevated white blood cell count, unspecified Qualifiers: Leukocytosis type: other Qualified Code(s): D72.828 - Other elevated white blood cell count (5) DVT (deep venous thrombosis) Current Visit: Yes Status: Acute Code(s): I82.409 - Acute embolism and thrombosis of unspecified deep veins of unspecified lower extremity Qualifiers: DVT location: lower extremity Affected thrombotic vein of extremity: femoral Chronicity: acute Laterality: left Qualified Code(s): I82.412 - Acute embolism and thrombosis of left femoral vein (6) Cognitive impairment Current Visit: Yes Status: Acute Code(s): R41.89 - Other symptoms and signs involving cognitive functions and awareness - Assessment / Plan Additional Assessment/Plan Details: continue rocephin, day #4 today eliquis for PE/DVT may need lifetime anticoagulation order PT and OT told family to consider potential cancer screening out of hospital, but not sure patient a good candidate for chemo or cancer therapy based on age, co- morbidities. needs treatment for PE first initially and screening can be done as outpatient. family agreed with this as a plan.
[2019-01-02] MEDS: cefTRIAXone Inj 2 GM in Sodium Chloride 0.9% 100 ML IV SCH ×2 (00:13→22:54)
[2019-01-02 04:45] LABS: BASOPHILS # (AUTO) 0.03 10*3/UL; BASOPHILS % (AUTO) 0.2 % (0-1); EOSINOPHILS # (AUTO) 0.15 10*3/UL; EOSINOPHILS % (AUTO) 1.1 % (0-8); Hematocrit [HCT] 39.5 % (37.0-47.0); Hemoglobin [HGB] 12.5 g/dL (12.0-16.0); LYMPHOCYTES # (AUTO) 2.93 10*3/uL; MEAN CORPUSCULAR HGB CONC 31.6 g/dL (33-37); MEAN CORPUSCULAR VOLUME 91.4 FL (81-99); MEAN PLATELET VOLUME 10.9 FL (7.4-12.2); MONOCYTES # (AUTO) 1.39 10*3/UL (0.3-0.8); MONOCYTES % (AUTO) 10.1 % (5-15); NEUTROPHILS # (AUTO) 9.28 10*3/UL; NEUTROPHILS % (AUTO) 67.2 % (50-80); RED BLOOD COUNT 4.32 10^6/uL (4.20-5.40)
[2019-01-02] MEDS: LEVOTHYROXINE 25 MCG TABLET PO SCH (04:48)
[2019-01-02 04:50] LABS: PLATELET MORPHOLOGY COMMENT NORMAL MORPHOLOGY (NORM); RBC MORPHOLOGY COMMENT NORMAL MORPHOLOGY (NORM); WBC MORPHOLOGY COMMENT NORMAL MORPHOLOGY (NORM)
[2019-01-02 04:53] LABS: BLOOD UREA NITROGEN 14 mg/dL (7-22); BUN/CREATININE RATIO 23.33 (6-20)
[2019-01-02] MEDS: VITAMIN B COMPLEX PO SCH (08:42)
[2019-01-02] MEDS: Apixaban 5 MG TABLET PO SCH ×2 (08:43→20:31)
[2019-01-02] MEDS: Potassium Chloride Tab 10 MEQ TAB PO SCH ×2 (08:44→20:31)
[2019-01-02] MEDS: FOLIC ACID 1 MG TABLET PO SCH (08:44)
[2019-01-02] MEDS: CHOLECALCIFEROL 1000 IU TABLET PO SCH (08:44)
--- NOTE | 2019-01-02 12:07 | PDOC(PROG) ---
Date of Service: 01/02/19 Time of Service: 12:03 Interval History: Feeling better. Still having pain with deep breaths. Weak and deconditioned, I spoke with therapy and the patient could not do very much activity without feeling short of breath. No chest pain, no nausea, no vomiting Objective : Data - Labs CBC and BMP: 01/02/19 04:19 01/02/19 04:19 Objective : Exam - General General Appearance: No Acute Distress, Cooperative Additional General Exam Details: Vital Signs - Last Taken Temperature 97.5 F 01/02/19 07:29 Pulse Rate 79 01/02/19 07:29 Respiratory Rate 20 01/02/19 07:29 Blood Pressure 140/66 01/02/19 07:29 Pulse Ox 94 01/02/19 07:29 - Eye Eye Exam: No Scleral Icterus - ENT ENT Exam: Mucous Membranes Moist - Neck Neck Exam: JVP is not Raised - Respiratory Respiratory Exam: Breathing Non Labored, Decreased Breath Sounds (Absent breath sounds lower right base.), Crackles, Coarse Breath Sounds - Cardiovascular Cardiovascular Exam: RRR, No Murmur, No Clicks, No Gallops, No Rubs, No JVD - GI/Abdominal GI/Abdominal Exam: Normal Bowel Sounds, Non Tender, Non Distended, Soft - Extremities Extremities Exam: No Clubbing Present, No Edema Present, No Cyanosis Present - Neurological Neurological Exam: Alert, No Facial Droop, Speech Intact / Clear, Moves All Ext remities Equally Assessment and Plan - Patient Problems (1) Pneumonia Current Visit: Yes Status: Acute Code(s): J18.9 - Pneumonia, unspecified organism Qualifiers: Pneumonia type: due to unspecified organism Laterality: right Lung location: lower lobe of lung Qualified Code(s): J18.1 - Lobar pneumonia, unspecified organism (2) Pleural effusion Current Visit: Yes Status: Acute Code(s): J90 - Pleural effusion, not elsewhere classified (3) Pulmonary embolism Current Visit: Yes Status: Acute Code(s): I26.99 - Other pulmonary embolism without acute cor pulmonale Qualifiers: Pulmonary embolism type: other Chronicity: acute Acute cor pulmonale presence: without acute cor pulmonale Qualified Code(s): I26.99 - Other pulmonary embolism without acute cor pulmonale (4) Hypertension Current Visit: Yes Status: Acute Code(s): I10 - Essential (primary) hype rtension Qualifiers: Hypertension type: essential hypertension Qualified Code(s): I10 - Essential (primary) hypertension (5) Leukocytosis Current Visit: Yes Status: Acute Code(s): D72.829 - Elevated white blood cell count, unspecified Qualifiers: Leukocytosis type: other Qualified Code(s): D72.828 - Other elevated white blood cell count (6) DVT (deep venous thrombosis) Current Visit: Yes Status: Acute Code(s): I82.409 - Acute embolism and thrombosis of unspecified deep veins of unspecified lower extremity Qualifiers: DVT location: lower extremity Affected thrombotic vein of extremity: femoral Chronicity: acute Laterality: left Qualified Code(s): I82.412 - Acute embolism and thrombosis of left femoral vein (7) Cognitive impairment Current Visit: Yes Status: Acute Code(s): R41.89 - Other symptoms and signs involving cognitive functions and awareness (8) Generalized weakness Current Visit: Yes Status: Acute Code(s): R53.1 - Weakness - Assessment / Plan Additional Assessment/Plan Details: Continue antibiotics, day #5 today. Had low-grade temperature last night. We'll continue Rocephin. write for Incentive spirometry. Continue PT and OT Continue breathing treatments. I think the patient would benefit greatly from a swing bed. On my exam today had the patient set up to auscultate her lungs, and a return checker nearly 30 seconds to sit up in the bed for a very poor get up and go result I'm going to check a chest x-ray tomorrow to recheck this effusion. If it somewhat persistent, may consider doing a thoracentesis although my thoughts are this is probably more likely related to pulmonary embolism than infection.
[2019-01-03] MEDS: LEVOTHYROXINE 25 MCG TABLET PO SCH (06:11)
[2019-01-03] MEDS: CHOLECALCIFEROL 1000 IU TABLET PO SCH (08:40)
[2019-01-03] MEDS: FOLIC ACID 1 MG TABLET PO SCH (08:40)
[2019-01-03] MEDS: Potassium Chloride Tab 10 MEQ TAB PO SCH ×2 (08:41→20:11)
[2019-01-03] MEDS: Apixaban 5 MG TABLET PO SCH (08:41)
--- NOTE | 2019-01-03 09:06 | DI ---
EXAM: XR Chest, 2 Views CLINICAL HISTORY: pneumonia and pleural effusion TECHNIQUE: Frontal and lateral views of the chest. COMPARISON: January 01, 2019. FINDINGS: Overall, little interval change in previously noted infarct/infiltrate in the right mid to lower lung and right pleural effusion. Cardiac silhouette and pulmonary vascularity are within normal limits. Left lung is unremarkable. IMPRESSION: Overall, little interval change in previously noted infarct/infiltrate in the right mid to lower lung and right pleural effusion.
[2019-01-03] MEDS: VITAMIN B COMPLEX PO SCH (10:22)
--- NOTE | 2019-01-03 12:10 | PDOC(PROG) ---
Date of Service: 01/03/19 Time of Service: 12:04 Interval History: No chest pain, still has cough. Was much better with physical therapy/occupational therapy today. Son and granddaughter at bedside. We discu ssed pleural effusion, risks and benefits of thoracentesis, and they agreed to proceed as well as the patient. No nausea or vomiting. Somewhat poor appetite. Objective : Data - Labs CBC and BMP: 01/02/19 04:19 01/02/19 04:19 - Imaging X-Ray Status: Image Reviewed by Me (Chest x-ray shows what looks to me like more consolidation in the right lower base. I suspect there is an underlying effusion) Objective : Exam - General General Appearance: No Acute Distress, Cooperative Additional General Exam Details: Vital Signs - Last Taken Temperature 97 F 01/03/19 11:18 Pulse Rate 102 H 01/03/19 11:18 Respiratory Rate 21 01/03/19 11:18 Blood Pressure 124/78 01/03/19 11:18 Pulse Ox 92 01/03/19 11:18 - Eye Eye Exam: No Scleral Icterus - ENT ENT Exam: Mucous Membranes Moist - Neck Neck Exam: JVP is not Raised - Respiratory Respiratory Exam: Breathing Non Labored, Decreased Breath Sounds (In right base), Crackles - Cardiovascular Cardiovascular Exam: RRR, No Murmur, No Clicks, No Gallops, No Rubs, No JVD - GI/Abdominal GI/Abdominal Exam: Normal Bowel Sounds, Non Tender, Non Distended, Soft - Extremities Extremities Exam: No Clubbing Present, No Edema Present, No Cyanosis Present - Neurological Neurological Exam: Alert, No Facial Droop, Speech Intact / Clear, Moves All Extremities Equally Assessment and Plan - Patient Problems (1) Pneumonia Current Visit: Yes Status: Acute Code(s): J18.9 - Pneumonia, unspecified organism Qualifiers: Pneumonia type: due to unspecified organism Laterality: right Lung location: lower lobe of lung Qualified Code(s): J18.1 - Lobar pneumonia, unspecified organism (2) Pleural effusion Current Visit: Yes Status: Acute Code(s): J90 - Pleural effusion, not elsewhere classified (3) Pulmonary embolism Current Visit: Yes Status: Acute Code(s): I26.99 - Other pulmonary embolism without acute cor pulmonale Qualifiers: Pulmonary embolism type: other Chronicity: acute Acute cor pulmonale presence: without acute cor pulmonale Qualified Code(s): I26.99 - Other pulmonary embolism without acute cor pulmonale (4) Hypertension Current Visit: Yes Status: Acute Code(s): I10 - Essential (primary) hypertension Qualifiers: Hypertension type: essential hypertension Qualified Code(s): I10 - Essential (primary) hypertension (5) Leukocytosis Current Visit: Yes Status: Acute Code(s): D72.829 - Elevated white blood cell count, unspecified Qualifiers: Leukocytosis type: other Qualified Code(s): D72.828 - Other elevated white blood cell count (6) DVT (deep venous thrombosis) Current Visit: Yes Status: Acute Code(s): I82.409 - Acute embolism and thrombosis of unspecified deep veins of unspecified lower extremity Qualifiers: DVT location: lower extremity Affected thrombotic vein of extremity: femoral Chronicity: acute Laterality: left Qualified Code(s): I82.412 - Acute embolism and thrombosis of left femoral vein (7) Cognitive impairment Current Visit: Yes Status: Acute Code(s): R41.89 - Other symptoms and signs involving cognitive functions and awareness (8) Generalized weakness Current Visit: Yes Status: Acute Code(s): R53.1 - Weakness - Assessment / Plan Additional Assessment/Plan Details: At this point, I think the pleural effusion needs to be sample to make sure there is no bacteria in it. I cannot differentiate between a parapneumonic effusion and an effusion from pulmonary embolism. I discussed this with the family at length. We will proceed with thoracentesis tomorrow. Hold Eliquis Labs in a.m. Given that the patient is on blood thinner, although I will have it held for over 24 hours prior to procedure, I think it may be best for radiology to do this procedure to minimize any bleeding risks with small catheters. If the Gram stain is negative, can discharge tomorrow, if positive then we need to see how much of the fluid we can drain. I also did discuss the possibility that this is all consolidation and there may not be any fluid on ultrasound to the family is aware that as a possibility. Continue PT and OT Anticoagulation for life Outpatient consideration for cancer screening with primary physician
[2019-01-03] MEDS: cefTRIAXone Inj 2 GM in Sodium Chloride 0.9% 100 ML IV SCH (23:19)
[2019-01-04 04:55] LABS: BASOPHILS # (AUTO) 0.07 10*3/UL; BASOPHILS % (AUTO) 0.7 % (0-1); EOSINOPHILS # (AUTO) 0.22 10*3/UL; EOSINOPHILS % (AUTO) 2.2 % (0-8); Hematocrit [HCT] 38.2 % (37.0-47.0); Hemoglobin [HGB] 12.4 g/dL (12.0-16.0); LYMPHOCYTES # (AUTO) 2.11 10*3/uL; MEAN CORPUSCULAR HGB CONC 32.5 g/dL (33-37); MEAN CORPUSCULAR VOLUME 90.7 FL (81-99); MEAN PLATELET VOLUME 10.6 FL (7.4-12.2); MONOCYTES % (AUTO) 13.2 % (5-15); NEUTROPHILS % (AUTO) 61.1 % (50-80); RED BLOOD COUNT 4.21 10^6/uL (4.20-5.40)
[2019-01-04 04:57] LABS: PLATELET MORPHOLOGY COMMENT NORMAL MORPHOLOGY (NORM); RBC MORPHOLOGY COMMENT NORMAL MORPHOLOGY (NORM); WBC MORPHOLOGY COMMENT NORMAL MORPHOLOGY (NORM)
[2019-01-04] MEDS: LEVOTHYROXINE 25 MCG TABLET PO SCH (05:06)
[2019-01-04] MEDS: Potassium Chloride Tab 10 MEQ TAB PO SCH (08:09)
[2019-01-04] MEDS: CHOLECALCIFEROL 1000 IU TABLET PO SCH (08:09)
[2019-01-04] MEDS: FOLIC ACID 1 MG TABLET PO SCH (08:10)
[2019-01-04] MEDS: VITAMIN B COMPLEX PO SCH (08:14)
--- NOTE | 2019-01-04 12:02 | OTI REPORT ---
Thank you for the referral of Hedy Franco. She was seen on 01/02/19 for an occupational therapy inpatient evaluation secondary to weakness. SUBJECTIVE: The patient is an 78-year-old female who is being seen secondary to having bilateral pulmonary embolisms, shortness of breath for the last two days, and hypertension. She has a previous history of breast cancer and having a unilateral mastectomy. She previously had some DVTs. The patient reports she does not do much during the day. She states she lives at home with her son but her son works night shifts and she basically sits in her chair for most of the day. She states she has stopped going to the grocery store and getting around town as she states she gets way too fatigued to do these things. The patient hasn't had an appetite; she reports she has not been able to eat very much. She states she feels a lot weaker. She states she would like to become more active and be able to clean her house and go shopping. Her mobile home does have 7 stairs with a handrail to get inside. She typically does not walk with a walker around her home. She states she fell a little while ago; she does not know the exact date, but she states her dogs had gotten behind her and she fell down. The patient states she typically dresses herself. She states that she struggles getting over the step in her shower, she cannot bend over, and she fatigues very easily in the shower. PAST MEDICAL HISTORY: Past medical history can be found in the patient's medical record. OBJECTIVE FINDINGS: General observations: The patient thought it was February of 1941. She reported that when the doctor came in the other day, she was very mad at him for trying to get her to answer these questions and she refused to answer the questions and she felt really bad about it. Bed mobility: The patient was able to come from supine to sit with increased time and min assist. Range of motion: While sitting edge of bed the patient demonstrated active range of motion from 0 to 120 degrees in bilateral shoulders; however, she stated this was very painful. Elbow active range of motion is within functional limits. Wrist and finger range of motion is within functional limits. All joints look arthritic when moving and she has hesitation with motion. Strength: The patient demonstrated upper extremity strength of 3/5 bilaterally. Endurance: The patient fatigues very easily. Transfers: The patient requires contact guard assist and increased time to transfer from sit to stand. Activities of daily living: The patient was able to sit edge of bed and don and doff her socks with increased time. The patient was able to complete a functional toilet transfer with a high rise toilet seat and contact guard assist. The patient needed min assist for toilet hygiene as she was not able to wipe herself completely after a bowel movement. Ambulation: The patient was able to ambulate approximately 40 feet but became very fatigued and stated that she needed to sit down. She needed a five minute rest break between the toilet transfer and the ambulation as she reported she was very fatigued. ASSESSMENT: The patient would benefit from further assessment of her cognitive status with cognitive testing if she is willing to participate. The patient fatigues very easily and her safety at home is questionable. She definitely needs to work on improving her strength and endurance before returning home. The patient may need to go swingbed as she will need increased time in order to improve her safety and overall abilities for home. Problem List: Decreased endurance Decreased cognitive orientation Decreased ability to perform ADLs Generalized weakness Short-Term Goals: To be met by discharge from inpatient: Patient will be alert and oriented x3. Patient will participate in a MoCA or a Cognitive Performance Test. Patient will increase overall strength to a 4+/5 bilaterally. Patient will be able to complete a toilet transfer safely and independently. Patient will be able to complete functional standing activity x10 minutes without fatigue. Long-Term Goals: To be met following discharge from inpatient: Patient will return home, demonstrating independence and safety with all functional transfers and ADLs. TREATMENT PLAN: Patient will be seen B.I.D during the week and one time per day over the weekend as an inpatient to address the above goals and objectives. INITIAL TREATMENT: Treatment today consisted of the initial evaluation followed by lower extremity dressing tasks at edge of bed. The patient functionally transferred to the bathroom with a wheeled walker. The patient required contact guard assist and min assist for toilet hygiene. The patient then ambulated x40 feet with wheeled walker. The patient became very fatigued and requested a rest break several times. The patient was issued a bath sponge as she does have difficulty showering self below the knees. The patient was issued a shower chair with a back to improve her energy conservation and ability to shower self and improve her safety in the shower. PETER
[2019-01-04] MEDS ORDERED: BUPivacaine Inj 0.25% PF - 10ml vial ONE (12:52)
[2019-01-04 14:53] VITALS: BP 116/75; RESP 20; TEMP 98.2; O2SAT 92
--- NOTE | 2019-01-04 14:59 | DCSUMMARY ---
Hospitalization Summary Admit Date: 12/29/2018 Discharge Date: 01/04/19 Primary Diagnosis:: acute pulmonary embolism, community acquired pneumonia Hospital Course: This very pleasant 78-year-old female who was admitted with chest pain, pleuritic pain, and was found to have pulmonary embolism with right-sided lower lobe infarct as well as infiltrate. She was placed on Eliquis after a day or 2 on heparin and Lovenox trying to figure out whether or not she had an infarct or pneumonia. She was also placed on antibiotics. The patient had a somewhat slow recovery from that perspective due to pleuritic pain. Eventually physical therapy and occupational therapy were ordered because of the patient's weakness and she did improve through the hospital stay. The patient's mental status seemed worsened initially according to the family but it did return to baseline. She does have a MOCA score of 6/30 probably has moderate to severe dementia. We have ordered a physical therapy and occupational therapy planned for 2 times a week over the next 8 weeks and we also arranged for a med nurse to go home to check on the patient's medications. In terms of the blood clot, I think this is unprovoked. Her biggest risk factor was in mobility and age. I discussed with the family regarding a cancer workup although I don't think the patient and her age, with her dementia, and overall conditioning status would be a good candidate for chemotherapy and/or surgical therapy or radiation, but I deferred and told the family that a cancer workup with her primary care physician including breast cancer screening, colon cancer screening, possible cervical cancer screening, may make some sense is 10% of patients with unprovoked blood clots can have underlying malignancy. I think she needs treatment initially and the patient's family and the patient agreed with this approach and they will discuss with a primary care physician which we arranged at the medical office building. She has no evidence of right heart strain. I spoke with the solderer assembler regarding her echocardiogram and I have a preliminary report that it was a normal echocardiogram with no evidence of right heart failure. The patient was also found to have an acute DVT in the lower extremity which is being treated with Eliquis as well. Case management worked with the prescription and found that it would be covered by the patient's insurance. It appeared on chest x-ray that the patient might have a pleural effusion. I did arrange for thoracentesis, but I spoke to the radiologist and under ultrasound guidance there was absolutely no fluid. This all infiltrate and/or a combination of infiltrate and pulmonary infarction from pulmonary embolism. In terms of the patient's cough, I recommended Mucinex [id number]. In terms of the pneumonia, she is gotten 7 days of Rocephin during the hospital stay, but I think we should extend therapy to 10 days and have written for 3 days of Ceftin which the patient will complete as an outpatient and I have asked for a chest x-ray to be done in 4 weeks and I've written a prescription for that and carbon copied this to her primary physician for review in 4 weeks. We stopped anti-inflammatories at the time of discharge. Today, the patient denies chest pain. She still complains of cough. No nausea or vomiting. She is "ready to go home". I spoke with her granddaughter who is present at the time of discharge and she is in agreement with the plan. Assessment and Plan: 1. As per discharge assessments noted 2. Disposition: Patient is discharged home. 3. Condition on discharge, stable and improved. 4. Diet: regular diet 5. Activities: resume normal activities 6. Follow-Up: 1. Dr. Herman this week 2. 7. Medications at the Time of Discharge: Home Medications Medication Instructions Recorded Confirmed Folic Acid 4 mg PO DAILY 08/27/13 12/29/18 Amlodipine Besylate/Benazepril 1 ea PO DAILY 08/28/13 12/29/18 [Amlodipine-Benazepril 5-10 mg] Cholecalciferol (Vitamin D3) 1 cap PO QD cap 02/16/15 12/29/18 [Vitamin D] Vitamin B Complex 1 ea PO QD tab 02/16/15 12/29/18 Levothyroxine Sodium 1 tab PO QD #90 tab 03/16/15 12/29/18 Apixaban [Eliquis] 5 mg PO BID #60 tablet 01/04/19 Cefuroxime Axetil [Ceftin] 500 mg PO BID #6 tablet 01/04/19 8. Time, care, counseling and coordination of care for this discharge is greater than 30 minutes. Exam - Vitals Vital Signs: Vital Signs Temperature 98.2 F Temperature Source Oral Pulse Rate [Pulse Oximeter] 118 Pulse Rate 84 Respiratory Rate 20 Blood Pressure [Right Arm] 122/78 Blood Pressure [Left Arm] 116/75 Blood Pressure 117/61 Pulse Ox 92 Oxygen Flow Rate 2 Oxygen Delivery Method Room Air Height 5 ft 4 in Weight 166 lb 12.8 oz - General General Appearance: No Acute Distress, Cooperative - Eye Eye Exam: POSITIVE: No Scleral Icterus - ENT ENT Exam: POSITIVE: Mucous Membranes Moist - Neck Neck Exam: JVP is not Raised - Respiratory Respiratory Exam: POSITIVE: Breathing Non Labored, Decreased Breath Sounds (Right lower base), Coarse Breath Sounds - Cardiovascular Cardiovascular Exam: POSITIVE: RRR, No Murmur, No Clicks, No Gallops, No Rubs, No JVD - GI/Abdominal GI/Abdominal Exam: POSITIVE: Normal Bowel Sounds, Non Tender, Non Distended, Soft - Extremities Extremities Exam: POSITIVE: No Clubbing Present, No Edema Present, No Cyanosis Present Data Peritnent Studies: 12/22/12 09/11/17 12/29/18 11:45 19:46 19:00 WBC Hgb RDW 13.8 Plt Count Neutrophils % (Manual) Band Neutrophils % Sodium Potassium Chloride Carbon Dioxide Anion Gap BUN Creatinine Glucose Hemoglobin A1c Calcium Magnesium 2.1 Total Bilirubin 1.0 AST 24 ALT 13 Alkaline Phosphatase 75 CK-MB (CK-2) Troponin I NT-Pro-B Natriuret Pep 352 Total Protein 7.4 Albumin 3.7 Globulin 3.8 Albumin/Globulin Ratio 0.90 L Vitamin B12 TSH 12/29/18 12/30/18 12/30/18 19:00 05:05 05:05 WBC Hgb RDW Plt Count Neutrophils % (Manual) Band Neutrophils % Sodium Potassium Chloride Carbon Dioxide Anion Gap BUN Creatinine Glucose Hemoglobin A1c 5.45 Calcium Magnesium Total Bilirubin AST ALT Alkaline Phosphatase CK-MB (CK-2) < 0.22 Troponin I NT-Pro-B Natriuret Pep Total Protein Albumin Globulin Albumin/Globulin Ratio Vitamin B12 TSH 4.03 12/30/18 12/31/18 01/01/19 14:12 04:50 04:21 WBC Hgb RDW Plt Count Neutrophils % (Manual) 72 Band Neutrophils % 5 Sodium Potassium Chloride Carbon Dioxide Anion Gap BUN Creatinine Glucose Hemoglobin A1c Calcium Magnesium Total Bilirubin AST ALT Alkaline Phosphatase CK-MB (CK-2) Troponin I < 0.012 NT-Pro-B Natriuret Pep Total Protein Albumin Globulin Albumin/Globulin Ratio Vitamin B12 570 TSH 01/02/19 01/04/19 04:19 04:12 WBC 9.83 Hgb 12.4 RDW Plt Count 321 Neutrophils % (Manual) Band Neutrophils % Sodium 141 Potassium 4.4 Chloride 104 Carbon Dioxide 29 Anion Gap 8 BUN 14 Creatinine 0.6 Glucose 99 Hemoglobin A1c Calcium 8.9 Magnesium Total Bilirubin AST ALT Alkaline Phosphatase CK-MB (CK-2) Troponin I NT-Pro-B Natriuret Pep Total Protein Albumin Globulin Albumin/Globulin Ratio Vitamin B12 TSH Procedures: [address] [facility] [place] [address] PH: DD: [phone] FAX: [phone] ~DIAGNOSTIC IMAGING REPORT~ Patient: GERMAN LOVE : 1940 Sex: F Age: 78 Exam Name: CT CTA Chest Non-Coronary [facility] Exam Date: 12/29/18 Report # : [id number] CPT Code: 89337 EMR/MR #: [id number] Ordering: MALIHA MUELLER Admiting: Primary: ZULEIMA WEBER MD Attending: Signed CT CTA Chest Non-Coronary [facility],12/29/2018 7:46 PM: Clinical History: Chest pain and elevated d-dimer. Previous Exam: 08/26/13 Findings: Multiple helically acquired CT images are obtained through the chest following the intravenous ministration of 62 cc of Ultravist 370, and demonstrate multiple pulmonary emboli within the pulmonary arteries bilaterally causing truncation. There is some subsegmental atelectasis in the lung bases. The aortic arch is unremarkable. The thyroid is normal. Multiple coronary artery calcifications are seen. Skeletal structures are unremarkable. The upper abdomen is unremarkable. Impression: Multiple bilateral pulmonary emboli. Dictated By: 12/29/182040 MOISES NOGUERA MD. Signed By: 12/29/182047 MOISES NOGUERA MD. Patient Problems - Patient Problem List (1) Pneumonia Current Visit: Yes Status: Acute Code(s): J18.9 - Pneumonia, unspecified organism Qualifiers: Pneumonia type: due to unspecified organism Laterality: right Lung location: lower lobe of lung Qualified Code(s): J18.1 - Lobar pneumonia, unspecified organism Category: Medical (2) Pleural effusion Current Visit: Yes Status: Acute Code(s): J90 - Pleural effusion, not elsewhere classified Category: Medical (3) Pulmonary embolism Current Visit: Yes Status: Acute Code(s): I26.99 - Other pulmonary embolism without acute cor pulmonale Qualifiers: Pulmonary embolism type: other Chronicity: acute Acute cor pulmonale presence: without acute cor pulmonale Qualified Code(s): I26.99 - Other pulmonary embolism without acute cor pulmonale Category: Medical (4) Hypertension Current Visit: Yes Status: Acute Code(s): I10 - Essential (primary) hypertension Qualifiers: Hypertension type: essential hypertension Qualified Code(s): I10 - Essential (primary) hypertension Category: Medical (5) Leukocytosis Current Visit: Yes Status: Acute Code(s): D72.829 - Elevated white blood cell count, unspecified Qualifiers: Leukocytosis type: other Qualified Code(s): D72.828 - Other elevated white blood cell count Category: Medical (6) DVT (deep venous thrombosis) Current Visit: Yes Status: Acute Code(s): I82.409 - Acute embolism and thrombosis of unspecified deep veins of unspecified lower extremity Qualifiers: DVT location: lower extremity Affected thrombotic vein of extremity: femoral Chronicity: acute Laterality: left Qualified Code(s): I82.412 - Acute embolism and thrombosis of left femoral vein Category: Medical (7) Cognitive impairment Current Visit: Yes Status: Acute Code(s): R41.89 - Other symptoms and signs involving cognitive functions and awareness Category: Medical (8) Generalized weakness Current Visit: Yes Status: Acute Code(s): R53.1 - Weakness Category: Medical
--- NOTE | 2019-01-04 17:10 | PT.PROG ---
Progress Note Progress Note: S. Patient stated she would go to the therapy gym this afternoon. O. Patient ambulated 90 feet to the wheelchair and was wheeled to the therapy gym where she performed seated exercises in the form of; long arc quads, heel toe raises, ball squeezes, clam shells, resisted knee flexion all x 10 bilaterally with 2# weights. Patient performed box step ups x 10 with #2 box. Patient ambulated 90 feet to the wheel chair and was returned to her room where she was left with alarm and call light. A. Patient tolerated therapy well this afternoon, she continues to be confused however was able to complete all exercises with no increase in pain or problems. P. Patient would benefit from outpatient therapy at this time.
[2019-01-04] MEDS ORDERED: Apixaban 5 MG TABLET PO SCH (21:00)
--- NOTE | 2019-01-05 11:11 | PTI REPORT ---
Thank you for the referral of Hedy Franco. She was seen on 01/04/19 for an inpatient evaluation secondary to generalized weakness. SUBJECTIVE: The patient is an 78-year-old female who presents to therapy following a pulmonary edema and a deep vein thrombosis. The patient presents and reports balance, strength, and coordination deficits. The patient denies any pain at this time. The patient states she has trouble with mobility including climbing stairs, rising from her vehicle, and other functional deficits. Currently the patient uses a walker during all activities and ambulation while in the hospital as well as in the community. The patient knows that she is unsteady often times, especially without her walker. The patient reports having fallen once in the last year. She states she doesn't fall often or feel unsteady with her balance within her home, except for when she is wrestling with her two dogs that are large hunting dogs. The patient's goals are to be able to move better and to get out of the hospital. The patient notes fair general health and states she is able to sleep properly throughout the night with no pain. PAST MEDICAL HISTORY: Past medical history can be found in the patient's medical record. OBJECTIVE FINDINGS: General observations: The patient appears as a normally developed white female of [id number]. The patient has forward flexed posture and has other postural deficits such as decreased hip extension, forward shoulders, forward head, and increased thoracic kyphosis. No pain with palpation is reported by the patient. Range of motion: Cervical range of motion is within normal limits in all motions except for extension which is severely limited. No pain is noted with any of the motions. Upper extremity movement is within functional limits and no pain is noted in the glenohumeral joint with motion. Lower extremity range of motion is within normal limits with hip extension being minimally decreased. Strength: The patient notes general lower extremity weakness with left extremity weaker than the right. Strength of 4+/5 is noted with hip flexion, knee extension, and knee flexion. Balance: Good static balance is reported by the patient with eyes open and eyes closed balance. Dynamic balance is fair and use of a walker is required with activity and gait. Sensation/Reflexes: No neural numbness or loss of sensation is found with the patient. Lower extremity reflexes were not tested at this time. ASSESSMENT: The patient will benefit from skilled therapy to address outlined functional deficits. Problem List: Decreased balance Decreased strength Decreased range of motion Decreased overall function Decreased endurance Physical Therapy Goals: To be met by discharge from inpatient: Patient will be able to rise from a chair with no pain and with proper form. Patient will demonstrate proper lower extremity strength to ascend and descend one flight of stairs with step over gait pattern. Patient will be able to ambulate 1000 feet with use of walker, indicating increased total body endurance. TREATMENT PLAN: Patient will be seen B.I.D during the week and one time per day over the weekend as an inpatient to address the above goals and objectives. INITIAL TREATMENT: Treatment today consisted of the initial evaluation activities only. Dictated by: OTTO Kang
--- NOTE | 2019-01-05 14:33 | OT AM DAY ---
Diagnosis : Weakness AM - Occupational Therapy S: The patient reports she is doing okay. O: The patient was assessed with the [place] Cognitive Assessment (MoCA). Visuospatial/Executive: 2/5 Namin/3 Attention: 2/6 Language: 0/3 Abstraction: 0/2 Delayed Recall: 0/5 Orientation: 6 Overall the patient scored 6/30 which places her in the SEVERE cognitive impairment category. The patient also performed therapeutic exercises with red theraband including biceps curls, internal/external rotation, shoulder extension, and shoulder adduction. The patient completed a shoulder elevation exercise with a two pound ball. A: The patient is demonstrating severe cognitive impairment. We will have a discussion with the team and the family about this. This afternoon the patient will go through the Cognitive Performance Test. P: Continue seeing patient BID during the week and one time per day over the weekend for upper extremity strengthening, ADLs, and overall functional mobility. MTDD
--- NOTE | 2019-01-05 14:42 | OT PM DAY ---
Diagnosis : Weakness PM - Occupational Therapy S: The patient reported that she thought this morning she may have "flunked" the MoCA, but she was willing to participate with the CPT. O: The patient completed the CPT. Med box: The patient scored 4.5/6.0 -- The patient attempted to follow directions on all four labels, but she did not get any of the labels correct and she needed a lot of verbal cues. The patient asked what a PRN medication was and she stated she would just put it in whenever during the day. When asked why she would do that, she stated "yeah, why not?" Shopping: The patient scored 3.5/6.0 -- The patient looked at the wallet and money as well as the gloves. She constantly changed between what pair of gloves she was going to buy. Sometimes she would try to count the dollars and other times she did not count them correctly. She fumbled through the change but was not able to count change correctly. She forgot the directions several times during this task. Washing: The patient scored 4.0/5.0 -- She did need specific directions to complete this task. She did take the soap, went to the sink, turned the water on, and was able to complete the task. She needed two directives to get to the sink. [place]: The patient scored 4.0/5.0 -- The patient started to complete the task without toasting the bread. When asked to toast the bread she did recognize that the toaster was not plugged in and completed the task correctly. Phone: The patient scored 4.0/6.0 -- The patient was able to look in the phone book but was not able to alphabetize effectively. She needed the number given to her after several attempts. She required three tries to use the phone and to call correctly. She did ask the correct question and did relay the answer. A: On average the patient's score was 4.0. This places the patient in the 24-hour care category. Cognitively she is having difficulty initiating tasks, finishing tasks, and remembering what the specific directions were. The therapist did discuss the patient's specific needs with the patient's granddaughter including needing someone to set up her medications, someone to make sure she is getting proper nutrition and good meals throughout the day, and someone to help her with showering task. The patient does lose focus easily and we may need to look into getting the patient more care throughout the day as she does live with her son, but he works nights. Her granddaughter does check on her once or twice a day, but this may need to increase with the patient's cognitive decline. P: Continue seeing patient BID during the week and one time per day over the weekend until discharge. PETER
--- NOTE | 2019-01-06 09:12 | DI ---
US Chest,01/04/2019 7:00 AM: Clinical History: Pleural effusion and pneumonia. Previous Exam: None at this facility. Findings: Superficial grayscale sonographic images are obtained demonstrating no significant pleural effusion. Impression: No visible pleural effusion at this time.
== END 2019-01-04 15:34 | disposition home or self-care (01) | DRG 175 ==
LOC: ER 18:51 → MED/SURG 21:45
PROVIDERS: ADMIT Internal Medicine; ATTEND Internal Medicine